=== PATIENT | female | born 1960 | race Caucasian/White ===

== ENCOUNTER → 2016-08-31 | Outpatient (CLI) | payer BC | LOC: M LAB 09:14 | PROVIDERS: ATTEND Urology | DX: R31.9 Hematuria, unspecified (principal) ==

== ENCOUNTER → 2017-04-26 | Outpatient (CLI) | payer BC ==
[2017-04-26 10:07] LABS: BASO # 0.1 10^3/uL (0.0-0.2); EOS # 0.1 10^3/uL (0.0-0.50); EOS % 2.9 % (0.0-3.0); HEMATOCRIT 38.7 % (36.0-47.0); HEMOGLOBIN 13.1 g/dl (12.0-16.0); IMMATURE GRANULOCYTE % 0.2 % (0-3.0); LYMPH # 1.7 10^3/uL (1.5-4.5); LYMPH % 35.6 % (24.0-44.0); MEAN CORPUSCULAR HEMOGLOBIN 29.4 pg (27.0-33.0); MEAN CORPUSCULAR HGB CONC 33.9 g/dl (32.0-36.5); MONO # 0.5 10^3/uL (0.0-0.8); MONO % 10.4 % (0.0-5.0); NEUTROPHILS # 2.4 10^3/uL (1.8-7.7); NEUTROPHILS % 49.9 % (36.0-66.0); PLATELET COUNT, AUTOMATED 197 10^3/uL (150-450); RED BLOOD COUNT 4.45 10^6/uL (4.00-5.40); RED CELL DISTRIBUTION WIDTH 12.7 % (11.5-14.5); WHITE BLOOD COUNT 4.8 10^3/uL (4.0-10.0)
[2017-04-26 10:14] LABS: APPEARANCE, URINE CLEAR (CLEAR); BACTERIA, URINE AUTO NEGATIVE (NEGATIVE); BILIRUBIN, URINE AUTO NEGATIVE (NEGATIVE); BLOOD, URINE BLOOD NEGATIVE (NEGATIVE); COLOR, URINE YELLOW (YELLOW); GLUCOSE, URINE (UA) AUTO NEGATIVE (NEGATIVE); KETONE, URINE AUTO NEGATIVE (NEGATIVE); LEUKOCYTE ESTERASE, URINE AUTO NEGATIVE (NEGATIVE); MUCUS, URINE SMALL (NEGATIVE); NITRITE, URINE AUTO NEGATIVE (NEGATIVE); PROTEIN, URINE AUTO NEGATIVE (NEGATIVE); RBC, URINE AUTO 2 /HPF (0-3); SPECIFIC GRAVITY URINE AUTO 1.023 (1.002-1.035); SQUAMOUS EPITHELIAL CELL UR AU 0 /HPF (0-6); UROBILINOGEN, URINE AUTO 0.2 mg/dL (0.0-2.0); WBC, URINE AUTO 0 /HPF (0-3)
[2017-04-26 10:36] LABS: ALBUMIN 3.6 GM/DL (3.2-5.2); ALBUMIN/GLOBULIN RATIO 0.92 (1.00-1.93); ALKALINE PHOSPHATASE 88 U/L (45-117); ALT/SGPT 20 U/L (12-78); ANION GAP 4 MEQ/L (8-16); AST/SGOT 10 U/L (7-37); BILIRUBIN,TOTAL 0.4 MG/DL (0.2-1.0); BLOOD UREA NITROGEN 22 MG/DL (7-18); CALCIUM LEVEL 8.7 MG/DL (8.5-10.1); CARBON DIOXIDE LEVEL 31 MEQ/L (21-32); CHLORIDE LEVEL 106 MEQ/L (98-107); CHOLESTEROL LEVEL 153 MG/DL (<200); CHOLESTEROL RISK RATIO 2.637 (<5); CREATININE FOR GFR 0.75 MG/DL (0.55-1.30); GLOMERULAR FILTRATION RATE > 60.0 (>51); GLUCOSE, FASTING 94 MG/DL (70-100); HDL CHOLESTEROL 58 MG/DL (>40); LDL CHOLESTEROL 86.4 MG/DL (<100); NON-HDL-C 95 MG/DL; POTASSIUM SERUM 3.8 MEQ/L (3.5-5.1); SODIUM LEVEL 141 MEQ/L (136-145); TOTAL PROTEIN 7.5 GM/DL (6.4-8.2); TRIGLYCERIDES LEVEL 43 MG/DL (<150)
== END ==
LOC: M LAB 09:22
DX: E78.00 Pure hypercholesterolemia, unspecified (principal)
CPT/HCPCS: 80053

== ENCOUNTER 2018-09-28 15:04 | Emergency (ER) | payer OTHER, BC ==
[~2018-09-28] VITALS: Ht 167.6 cm; Wt 75.0 kg
[2018-09-28] MEDS ORDERED: ATOR1TAB19 PO (15:24)
--- NOTE | 2018-09-28 16:36 | REP ---
CT head without contrast Minute clinical indication: Trauma. Comparison: None Technique: Axial CT imaging of the head without contrast was performed. Findings: There is motion artifact degradation. There is no visible soft tissue swelling or calvarial fracture. There is no acute intracranial hemorrhage, midline shift or mass effect. The ventricles and sulci are symmetric. Del Castillo-white matter differentiation is maintained. There is no extra-axial fluid collection. The basal cisterns are patent. The orbits are intact. The visualized paranasal sinuses and mastoid air cells are clear. Impression: No acute intracranial abnormality. Electronically Signed by Yana Cooley MD 09/28/2018 04:27 P
--- NOTE | 2018-09-28 16:44 | REP ---
CT of the cervical spine without contrast Indication: Trauma. Comparison: None Technique: Axial CT imaging of the cervical spine was performed without contrast. Reformatted images were reviewed in the axial, sagittal and coronal planes. Findings: There is no acute fracture or dislocation of the cervical spine. There are multilevel degenerative changes including disc space narrowing and marginal osteophytosis and subchondral cyst formation. There is central disc protrusion at C4-C5 with narrowing of the spinal canal. The posterior paraspinal soft tissues are within normal limits. Note is made of a right paraesophageal bleb, likely extending right lung apex. No apical pneumothorax. There are small cervical lymph nodes bilaterally. The imaged portion of the brain is unremarkable. Impression: 1. No acute fracture or subluxation of the cervical spine. 2. Cervical spondylosis. C4-C5 disc protrusion with narrowing of the spinal canal. Electronically Signed by Yana Cooley MD 09/28/2018 04:35 P
--- NOTE | 2018-09-28 18:07 | ECGEPIP ---
[facility] - ED Test Date: 2018-09-28 Pat Name: RONALD ESPOSITO Department: Room: - Gender: Female [employer]ist [employer]: rula : 1960 Requested By: Rona Su Order Number: [id number] Reading MD: Rona Su Measurements Intervals Cass Rate: 71 P: 54 WA: 143 QRS: 59 QRSD: 102 T: 38 QT: 393 QTc: 428 Interpretive Statements SINUS RHYTHM NSTTW abnormalities NO PRIOR Electronically Signed on 09-28-2018 18:07:11 EDT by Rona Su
[2018-09-28 18:51] VITALS: BP 132/72
--- NOTE | 2018-10-02 20:32 | ED PDOC ---
Post-Departure Follow-Up certified letter sent to pt re formal read of ct c spine. no pcp listed. obtain pcp name and fax report Paulo Vega MD Oct 02, 2018 20:32
== END 2018-09-28 18:50 | disposition home or self-care (01) ==
LOC: M ED 15:04 → EDBD 15:04 → EDSEX 15:04 → M ED 18:50
DX: S16.1XXA Strain of muscle, fascia and tendon at neck level, initial encounter (principal); V48.0XXA Car driver injured in noncollision transport accident in nontraffic accident, initial encounter; Y92.093 Driveway of other non-institutional residence as the place of occurrence of the external cause; M47.812 Spondylosis without myelopathy or radiculopathy, cervical region; R51 Headache; F41.9 Anxiety disorder, unspecified; F32.9 Major depressive disorder, single episode, unspecified; Z79.899 Other long term (current) drug therapy

== ENCOUNTER → 2021-05-14 | Outpatient (CLI) | payer BC ==
[~2021-05-14] MED LIST: ATOR1TAB19 PO
== END ==
LOC: M WHC 11:03
PROVIDERS: ATTEND Nurse Practitioner Family
DX: Z12.31 Encounter for screening mammogram for malignant neoplasm of breast (principal)

== ENCOUNTER → 2022-05-15 | Outpatient (CLI) | payer BC | LOC: M WHC 10:04 | DX: R92.2 Inconclusive mammogram (principal) ==

== ENCOUNTER → 2023-05-18 | Outpatient (CLI) | payer BC | LOC: M WHC 11:04 | PROVIDERS: ATTEND Student in an Organized Health Care Education/Training Program | DX: Z12.31 Encounter for screening mammogram for malignant neoplasm of breast (principal) ==

== ENCOUNTER → 2024-05-25 | Outpatient (CLI) | payer BC ==
[2024-05-25 16:19] LABS: CREATININE FOR GFR 0.69 MG/DL (0.55-1.30); GLOMERULAR FILTRATION RATE > 90.0 (>45)
== END ==
LOC: M PLALAB 11:57
PROVIDERS: ATTEND Internal Medicine
DX: I10 Essential (primary) hypertension (principal)

== ENCOUNTER → 2024-05-25 | Outpatient (CLI) | payer BC | LOC: M WHC 11:12 | PROVIDERS: ATTEND Student in an Organized Health Care Education/Training Program | DX: Z12.31 Encounter for screening mammogram for malignant neoplasm of breast (principal) ==

== ENCOUNTER → 2024-06-06 | Outpatient (CLI) | payer BC ==
[~2024-06-06] MED LIST changes: +ISOVUE-370 76% 100ML VIAL As Ordered ONE
== END ==
LOC: M RAD 13:17
PROVIDERS: ATTEND Student in an Organized Health Care Education/Training Program
DX: R22.0 Localized swelling, mass and lump, head (principal)